=== PATIENT | female | born 1960 | race Caucasian/White ===

== ENCOUNTER 2022-01-24 18:31 | Inpatient (IN) | payer OTHER ==
[~2022-01-24] VITALS: Ht 177.8 cm; Wt 73.3 kg
[2022-01-24 20:00] VITALS: BP 122/73; PULSE 111; TEMP 98.1
[2022-01-24] MEDS ORDERED: RISPERDAL 0.5M0.5 MG PO (20:13)
[2022-01-24] MEDS ORDERED: ONE-A-DAY ESSE1 EACH PO (20:16)
[2022-01-24] MEDS ORDERED: LEXAPRO 10MG10 MG PO (20:16)
[2022-01-24] MEDS ORDERED: FOLIC ACID 11 MG/TA1 PO (20:17)
[2022-01-24] MEDS ORDERED: PROTONIX 40MG T40 MG PO (20:18)
[2022-01-24] MEDS ORDERED: SYNTHROID0.05 MG/TA PO (20:18)
[2022-01-24 22:00] LABS: MEAN CELL VOLUME 91 fl (80.0-100.0); MEAN CORPUSCULAR HGB CONC 32 g/dl (33.0-37.0); MEAN PLATELET VOLUME 10.7 fl (7.4-10.4); PLATELET COUNT 442 K/mm3 (130-400); RED BLOOD COUNT 3.31 M/mm3 (4.10-5.30); REDCELL DISTRIBUTION WIDTH-CV 18.6 % (11.5-14.5)
--- NOTE | 2022-01-24 22:05 | NUR ---
Pt to room at approximately 1940 via EMS stretcher. Pt acclimated to room and policies. Assessment and med rec completed without difficulty. Pt is A&O and pleasant. Ice pack placed on pts L hip. Pt rates pain 8/10 when L hip is moved. PRN pain medication ordered. All other needs met at this time. Call light within reach.
[2022-01-24 22:06] LABS: HEMATOCRIT 30.2 % (37.0-47.0); HEMOGLOBIN 9.5 g/dl (12.5-16.0); INR 1.1 (0.8-3.0); MEAN CORPUSCULAR HEMOGLOBIN 29 pg (27-31); PROTHROMBIN TIME 12.9 SECONDS (9.7-12.8)
[2022-01-24 22:41] LABS: ANISOCYTOSIS 2+; BAND 3 % (0-10); HYPOCHROMIA 2+; LYMPHOCYTE 15 % (20.0-51.0); NEUTROPHILS 70 % (42.0-75.2); PLATELET ESTIMATE NORMAL (NORMAL)
[2022-01-24 22:49] LABS: ALBUMIN 2.1 gm/dL (3.4-4.8); BILIRUBIN,TOTAL 1.1 mg/dL (0.2-1.2); CALCIUM 7.9 mg/dL (8.4-10.2); CREATININE, serum 1.01 mg/dL (0.57-1.11); POTASSIUM 3.6 mmol/L (3.5-4.5); TOTAL PROTEIN 5.9 gm/dL (6.2-8.1)
[2022-01-25] VITALS (12 sets, daily range): BP systolic 98–134; BP diastolic 56–90; PULSE 67–106; TEMP 97.4–98.4
[2022-01-25 00:40] LABS: COLLECTION METHOD CATHETER
[2022-01-25 00:55] LABS: PH 6 (5-8); SQUAMOUS EPITHELIAL None Seen /hpf (0-10); URINE APPEARANCE Turbid (CLEAR/HAZY); URINE BACTERIA Rare /hpf (NONE SEEN); URINE BILIRUBIN Negative (NEGATIVE); URINE BLOOD Negative (NEGATIVE); URINE COLOR Amber (YELLOW); URINE GLUCOSE Negative (NEGATIVE); URINE KETONE Negative (NEGATIVE); URINE LEUKOCYTE ESTERASE 3+ (NEGATIVE); URINE NITRATE Negative (NEGATIVE); URINE PROTEIN(semi-quant) 1+ (NEGATIVE); URINE RBC 20-50 /hpf (0-2); URINE UROBILINOGEN >=4.0 (NEGATIVE)
[2022-01-25 06:29] LABS: BASO # 0.1 K/mm3 (0.0-0.2); BASO % 0.4 % (0.0-2.0); EOS # 0.1 K/mm3 (0.0-0.7); EOS % 0.5 % (0.0-4.0); GRAN # 9.5 K/mm3 (1.4-6.5); GRAN % 73.5 % (42.2-75.2); LYMPH # 1.9 K/mm3 (1.2-3.4); LYMPH % 14.6 % (20.0-51.0); MEAN CELL VOLUME 91 fl (80.0-100.0); MEAN CORPUSCULAR HGB CONC 32 g/dl (33.0-37.0); MEAN PLATELET VOLUME 11.1 fl (7.4-10.4); MONO # 1.4 K/mm3 (0.1-0.6); MONO % 10.4 % (1.7-9.3); PLATELET COUNT 427 K/mm3 (130-400); RED BLOOD COUNT 3.26 M/mm3 (4.10-5.30); REDCELL DISTRIBUTION WIDTH-CV 18.6 % (11.5-14.5)
[2022-01-25 06:31] LABS: HEMATOCRIT 29.7 % (37.0-47.0); HEMOGLOBIN 9.4 g/dl (12.5-16.0); MEAN CORPUSCULAR HEMOGLOBIN 29 pg (27-31)
[2022-01-25 06:38] LABS: CALCIUM 7.9 mg/dL (8.4-10.2); CREATININE, serum 0.73 mg/dL (0.57-1.11); POTASSIUM 3.4 mmol/L (3.5-4.5)
--- NOTE | 2022-01-25 08:22 | NUR ---
Discussed with ALANA Corcoran regarding clearance for surgery. Plan to see pt soon
--- NOTE | 2022-01-25 09:19 | NUR ---
Initial visit; Patient thanked Aerospace Assembler for looking in on her, offering prayer and encouragement and God's blessings. Aerospace Assembler will follow up with lele.
--- NOTE | 2022-01-25 09:53 | NUR ---
Called vascular to see about echo, should be done soon. Plan for surgery this afternoon if cleared
--- NOTE | 2022-01-25 10:06 | NUR ---
Echo being done at this time. Pt did receive some IV morphine earlier, pt reports that her pain is tolerable at this time. Pt is aware of the plan for the day.
--- NOTE | 2022-01-25 10:24 | NUR ---
YASMANY met with the patient to discuss discharge plan. The patient lives alone in [place]. She states that she has family that lives nearby. She reports independence with ADLs before her fall and has a cane and walker available, if needed. The patient's PCP is Dr. Alvina Garcia and she receives her medications from [facility]. The patient does not have a DPOA-HC, but she was interested in obtaining a form. YASMANY provided. The patient states that she is not , does not have any children, and that her parents are . She states that she has one sibling: a brother, Nghia (ph#[phone]). The patient has a hip fracture. SW discussed the possiblity of her needing post-acute rehab upon discharge and the options. The patient's insurance is [employer] Plan. SW informed her of IPR. The patient is interested in IPR and would prefer it. SW consulted IPR Director. Awaiting screen. *Discharge plan: post-acute rehab. Referral out to IPR. They will need insurance auth*
--- NOTE | 2022-01-25 12:10 | NUR ---
Notified cardiology in regards to needing echo read for surgical clearance. Discussed with Dr Kingsley who reported he would do it within the half hour. Pt doing well, pain is managed by iv morphine. Pt does have visitor at bedside. No other needs verbalized, tolerating IV potassium. Call light within reach
--- NOTE | 2022-01-25 12:53 | NUR ---
Echo has been read, notified hospitalist. Pt cleared for surgery, ortho notified
--- NOTE | 2022-01-25 14:43 | NUR ---
Pt off the floor for surgery at this time
--- NOTE | 2022-01-25 18:14 | NUR ---
Pt recently arrived to the floor from [facility]. She is alert and oriented with some pain complaints, 5/10. VSS. Dressing to LLE is CDI. Educated on post op care. Ordered dinner for her as she is tolerating ice chips with no complaints of nausea. Pt is on 2L of O2 per NC.
--- NOTE | 2022-01-25 22:52 | NUR ---
Pt sitting up in bed eating her evening meal during shift exchange, tolerating oral intake well. Assessment and medication pass completed without difficulty. Pt has complaints of L hip pain, PRN pain medication given per EMAR. All other needs met at this time, pt currently sleeping. Call light within reach.
[2022-01-26 03:17] VITALS: BP 103/68; PULSE 73; TEMP 97.9
[2022-01-26 06:43] LABS: HEMATOCRIT 29.7 % (37.0-47.0)
[2022-01-26 07:28] VITALS: BP 115/67; PULSE 72; TEMP 97.5
[2022-01-26 11:18] VITALS: BP 149/84; PULSE 95; TEMP 98.8
--- NOTE | 2022-01-26 13:03 | NUR ---
PT IN RECLINER CHAIR WITH FEET ELEVATED, WAS ASSISTED THERE BY PHYSICAL THERAPY THIS MORNING, HAS FINISHED EATING LUNCH. PT HAS HAD FAMILY VISITING THIS MORNING. DUNCAN SHAW DRAINING DEPENDENTLY. PT STATES THAT PAIN IS NOT BAD UNTIL SHE MOVES THEN BECOMES WORSE WITH MOVEMENT. PT DENIES NEEDS @ THIS TIME. RESPIRATIONS UNLABORED ON ROOM AIR. DRESSING CDI TO LEFT HIP. CALL LIGHT WITHIN REACH.
--- NOTE | 2022-01-26 15:03 | NUR ---
The PA notified YASMANY that the patient's brother requested to speak to SW and stated that he has concerns about the patient's wellbeing. YASMANY contacted the patient's brother, Nghia, to address the above. Nghia states that he is concerned about the patient's overall mental health. He states that the patient does have depression and she has had a decline since September, when their mother . He would just like to know what he can do to help the patient and of any local resources. YASMANY provided support. YASMANY emailed Nghia a list of local mental health resource and clinics. Lu, IPR Director, reports that she has submitted for auth.
[2022-01-26 15:33] VITALS: BP 106/54; PULSE 86; TEMP 97.8
--- NOTE | 2022-01-26 17:14 | NUR ---
PT RESTING IN BED, IVF INFUSING. RESPIRATIONS UNLABORED ON ROOM AIR. SONG CATHETER DRAINING DEPENDENTLY, URINE IS YELLOW ET CLEAR. SONG CATHETER APPEARS TO HAVE BEEN DRAINED THIS AFTERNOON BUT NO OUTPUT HAS BEEN DOCUMENTED, PT STATES THAT SOMEONE DRAINED THE BAG EARLIER BUT IS UNSURE OF WHO. NORCO PO ADMINISTERED FOR PAIN, PT DENIES FURTHER NEEDS. CALL LIGHT WITHIN REACH.
[2022-01-26 20:16] VITALS: BP 101/57; PULSE 84; TEMP 97.9
[2022-01-26 23:32] VITALS: BP 97/58; PULSE 82; TEMP 98.2
--- NOTE | 2022-01-27 00:49 | NUR ---
PATIENT IN BED. ALERT AND ORIENTED. C/O MODERATE PAIN, PRN NORCO GIVEN ALONG WITH SCHEDULED TYLENOL. SONG TO DD WITH WILDER CLEAR URINE OUT. L HIP X3 SITES WITH GAUZE AND TEGADERM ARE CDI.
[2022-01-27 04:08] VITALS: BP 104/54; PULSE 84; TEMP 98.2
[2022-01-27 07:54] VITALS: BP 109/58; PULSE 85; TEMP 97.9
[2022-01-27 08:03] LABS: BASO # 0.1 K/mm3 (0.0-0.2); BASO % 0.6 % (0.0-2.0); EOS # 0.1 K/mm3 (0.0-0.7); EOS % 0.6 % (0.0-4.0); GRAN # 7.7 K/mm3 (1.4-6.5); GRAN % 74.5 % (42.2-75.2); LYMPH # 1.5 K/mm3 (1.2-3.4); LYMPH % 14.5 % (20.0-51.0); MEAN CELL VOLUME 95 fl (80.0-100.0); MEAN CORPUSCULAR HGB CONC 31 g/dl (33.0-37.0); MEAN PLATELET VOLUME 10.8 fl (7.4-10.4); MONO # 0.9 K/mm3 (0.1-0.6); PLATELET COUNT 438 K/mm3 (130-400); RED BLOOD COUNT 2.91 M/mm3 (4.10-5.30); REDCELL DISTRIBUTION WIDTH-CV 19.1 % (11.5-14.5)
[2022-01-27 08:10] LABS: HEMATOCRIT 27.5 % (37.0-47.0); HEMOGLOBIN 8.6 g/dl (12.5-16.0); MEAN CORPUSCULAR HEMOGLOBIN 30 pg (27-31)
[2022-01-27 08:22] LABS: CALCIUM 7.9 mg/dL (8.4-10.2); CREATININE, serum 0.6 mg/dL (0.57-1.11)
--- NOTE | 2022-01-27 09:34 | NUR ---
Pt doing okay this morning. She is slow to waking up. Encouraged her to get some breakfast as therapy would be coming around to work with her. I did order her some at this time. Dressing to left hip is CDI. Explained the plan will be to remove her catheter today. Pt denies any needs, call light within reach
[2022-01-27 11:31] VITALS: BP 104/65; PULSE 97; TEMP 97.9
[2022-01-27 15:37] VITALS: BP 102/60; PULSE 87; TEMP 98.2
--- NOTE | 2022-01-27 15:56 | NUR ---
Lu, IPR Director, reports that insurance is denying IPR and would recommend SNF. YASMANY contacted the patient to update and to discuss the other options. The patient would like to stay around the [facility]. She states that she would be interested in [facility] Sw[facility]. YASMANY attempted to contact Umair at [facility]. SW left her a message, giving her the referral. YASMANY contacted and faxed and emailed a referral to [facility]. Awaiting screens. If able to accept, the above facilities would need to get auth from insurance.
[2022-01-27 20:00] VITALS: BP 121/71; PULSE 89; TEMP 98
--- NOTE | 2022-01-27 21:10 | NUR ---
Pt. sitting up in bed. Pt. is A&OX3, assessment complete. INT to lt. forearm patent. Pt. reports pain to lt. hip at a 5 on pain scale, giving pain meds per orders. Pt. denies further needs, call light within [facility].
[2022-01-28 00:51] VITALS: BP 117/62; PULSE 88; TEMP 98.6
[2022-01-28 04:12] VITALS: BP 118/64; PULSE 84; TEMP 98.6
[2022-01-28 06:18] LABS: BASO # 0.1 K/mm3 (0.0-0.2); BASO % 0.6 % (0.0-2.0); EOS # 0.1 K/mm3 (0.0-0.7); EOS % 0.9 % (0.0-4.0); GRAN % 70.1 % (42.2-75.2); LYMPH # 1.6 K/mm3 (1.2-3.4); LYMPH % 16.2 % (20.0-51.0); MEAN CELL VOLUME 98 fl (80.0-100.0); MEAN CORPUSCULAR HGB CONC 30 g/dl (33.0-37.0); MEAN PLATELET VOLUME 11.3 fl (7.4-10.4); MONO # 1.1 K/mm3 (0.1-0.6); PLATELET COUNT 466 K/mm3 (130-400); RED BLOOD COUNT 2.95 M/mm3 (4.10-5.30); REDCELL DISTRIBUTION WIDTH-CV 19.6 % (11.5-14.5)
[2022-01-28 06:22] LABS: HEMATOCRIT 28.8 % (37.0-47.0); HEMOGLOBIN 8.7 g/dl (12.5-16.0); MEAN CORPUSCULAR HEMOGLOBIN 29 pg (27-31)
[2022-01-28 06:33] LABS: CALCIUM 7.9 mg/dL (8.4-10.2); CREATININE, serum 0.57 mg/dL (0.57-1.11); POTASSIUM 3.6 mmol/L (3.5-4.5)
[2022-01-28 07:42] VITALS: BP 118/73; PULSE 77; TEMP 98.1
[2022-01-28 12:00] VITALS: BP 114/65; PULSE 85; TEMP 98.3
[2022-01-28 15:21] VITALS: BP 126/72; PULSE 79; TEMP 98.1
--- NOTE | 2022-01-28 18:57 | NUR ---
PT HAS DONE WELL THROUGHOUT SHIFT, HAS WORKED WITH PHYSICAL THERAPY ET BEEN UP TO CHAIR, AMBULATED TO BR WITH SBA ET WALKER. PT STATES THAT SHE TOOK A NAP THIS AFTERNOON.
[2022-01-28 19:57] VITALS: BP 96/59; PULSE 93; TEMP 98
--- NOTE | 2022-01-28 20:30 | NUR ---
Pt. sitting up in bed. Pt. is A&OX3, assessment complete. INT to lt. forearm patent. Pt. reports pain at a 4 on pain scale, giving pain meds per orders. Pt. denies further needs, call light within reach.
[2022-01-29 00:39] VITALS: BP 110/61; PULSE 84; TEMP 97.6
[2022-01-29 04:43] VITALS: BP 125/69; PULSE 89; TEMP 98.8
[2022-01-29 07:10] LABS: CALCIUM 8.1 mg/dL (8.4-10.2); CREATININE, serum 0.53 mg/dL (0.57-1.11); POTASSIUM 3.9 mmol/L (3.5-4.5)
[2022-01-29 07:39] VITALS: BP 139/82; PULSE 100; TEMP 98.2
[2022-01-29 07:54] LABS: MEAN CELL VOLUME 95 fl (80.0-100.0); MEAN CORPUSCULAR HGB CONC 31 g/dl (33.0-37.0); MEAN PLATELET VOLUME 11.3 fl (7.4-10.4); PLATELET COUNT 504 K/mm3 (130-400); RED BLOOD COUNT 2.98 M/mm3 (4.10-5.30); REDCELL DISTRIBUTION WIDTH-CV 19.9 % (11.5-14.5)
[2022-01-29 07:55] LABS: HEMATOCRIT 28.3 % (37.0-47.0); HEMOGLOBIN 8.8 g/dl (12.5-16.0); MEAN CORPUSCULAR HEMOGLOBIN 30 pg (27-31)
[2022-01-29 08:49] LABS: LYMPHOCYTE 10 % (20.0-51.0); NEUTROPHILS 77 % (42.0-75.2)
[2022-01-29 08:50] LABS: ANISOCYTOSIS 2+; HYPOCHROMIA 2+; PLATELET ESTIMATE INCREASED (NORMAL)
[2022-01-29 11:29] VITALS: BP 121/70; PULSE 92; TEMP 98.4
[2022-01-29 15:13] VITALS: BP 143/79; PULSE 91; TEMP 98.4
--- NOTE | 2022-01-29 20:00 | NUR ---
Pt. sitting up in bed. Pt. is A&OX3 assessment complete. INT to lt. forearm patent. Pt. reports pain to lt. hip at a 3 on pain scale. Pt. denies further needs, call light within reach.
[2022-01-29 20:23] VITALS: BP 112/64; PULSE 89; TEMP 98.2
[2022-01-30] VITALS (7 sets, daily range): BP systolic 111–143; BP diastolic 62–80; PULSE 78–93; TEMP 98.1–98.6
[2022-01-30 06:28] LABS: MEAN CELL VOLUME 93 fl (80.0-100.0); MEAN CORPUSCULAR HGB CONC 31 g/dl (33.0-37.0); MEAN PLATELET VOLUME 11.1 fl (7.4-10.4); PLATELET COUNT 557 K/mm3 (130-400); RED BLOOD COUNT 3.04 M/mm3 (4.10-5.30); REDCELL DISTRIBUTION WIDTH-CV 19.9 % (11.5-14.5)
[2022-01-30 06:31] LABS: HEMATOCRIT 28.4 % (37.0-47.0); HEMOGLOBIN 8.8 g/dl (12.5-16.0); MEAN CORPUSCULAR HEMOGLOBIN 29 pg (27-31)
[2022-01-30 06:45] LABS: CALCIUM 8.2 mg/dL (8.4-10.2); CREATININE, serum 0.51 mg/dL (0.57-1.11); POTASSIUM 3.9 mmol/L (3.5-4.5)
[2022-01-30 06:59] LABS: BAND 6 % (0-10); LYMPHOCYTE 20 % (20.0-51.0); METAMYELOCYTE 1 % (0-0); NEUTROPHILS 59 % (42.0-75.2); PLATELET ESTIMATE INCREASED (NORMAL)
--- NOTE | 2022-01-30 08:00 | NUR ---
PATIENT IS A&O. VSS. REPORTS SHE HAD PAIN MEDS FROM WASTEWATER DESIGN ENGINEER BEFORE SHIFT CHANGE AND IS COMFORTABLE. LEFT HIP SITES X2 WITH GAUZE & TEGA AND DRESSINGS WERE STARTING TO PEEL, APPLIED NEW GAUZE & TEGA TO LEFT HIP SITES. LEFT LATERAL KNEE SITE CD&I WITH BANDAID. STAND BY ASSIST WITH WALKER. PT/OT CONSULTED. TEDS TO BLE. SCD'S CURRENTLY OFF. NO C/O N/V. BREAKFAST TRAY AT BEDSIDE. AM MEDS GIVEN. LEFT FORARM IV TO INT. HEAD TO TOE ASSESSMENT COMPLETE. DNR STATUS. BLANKET INSPECTOR WORKING ON DISCHARGE PLACEMENT. NO OTHER NEEDS. CALL LIGHT IN REACH.
--- NOTE | 2022-01-30 08:57 | NUR ---
YASMANY left message for Fabi at [facility] to follow up on referral.
--- NOTE | 2022-01-30 10:21 | NUR ---
[facility] is not able to accept this patient. At this time they do not have a female bed open. Other reasons for denial are the patient's insurance and THC use. Fabi with [facility] is awaiting on review from their medical team.
--- NOTE | 2022-01-30 12:56 | NUR ---
Fabi with [facility] states that they are willing to accept this patient as long as the patient's insurance approves. Clinical information faxed to [employer].
--- NOTE | 2022-01-30 15:44 | NUR ---
SW contacted [facility]. Clinical's not received from earlier today. Clinicals faxed again to [phone]. Phone call made and message left for Fabi at [facility].
--- NOTE | 2022-01-30 16:10 | NUR ---
Clinical referral faxed to [facility].
--- NOTE | 2022-01-30 16:48 | NUR ---
PATIENT AMBULATED WITH PT TOLERATED WELL PROVIDED ICE POST AMBULATION TO LEFT HIP FOR PAIN. BED ALARM IN PLACE TO PROMOTE SAFETY HEENA ARREDONDOE TO AARON ENAMORADOTIBettie DRESSING INTACT WILL CONTINUE TO MONITOR FOR ANY CHAGNES.
--- NOTE | 2022-01-30 21:37 | NUR ---
PT IN BED. IS ALERT AND ORIENTED X4. HAS DRSGS X2 TO LEFT HIP, GAUZE D/I. HAS BANDAID TO LEFT LATERAL LEG D/I. PT WEARING HER OWN CLOTHES. HAS HEENA HOSE ON. TAKES HS MED INCLUDING NORCO 7.5MG 1 PO FOR LEFT HIP PAIN. HAS LFA INT.
[2022-01-31 03:33] VITALS: BP 128/77; PULSE 89; TEMP 98.3
--- NOTE | 2022-01-31 03:46 | NUR ---
PT ASSISTED TO BATHROOM WITH WALKER AND ONE ASSIST. HAS BM. BACK TO BED. MEDICATED WITH NORCO 7.5MG 1 TAB PO FOR LEFT HIP PAIN.
[2022-01-31 07:50] VITALS: BP 162/87; PULSE 94; TEMP 98.7
--- NOTE | 2022-01-31 09:24 | NUR ---
PT RESTING IN BED AFTER EATING BREAKFAST AND COMPLETING AM THERAPY. PT REQUESTING PO PAIN NEDS AFTER THERAPY. SEE MAR. PT TRYING FOR PLACEMENT PRIOR TO RETURNING HOME.
--- NOTE | 2022-01-31 10:07 | NUR ---
Fabi with [facility] accepts patient and would like the patient at their facility by 1400. Patient notified and is agreeable with this plan. She is going to check with her brother and her boyfriend to arrange transportation. Hospitalist and patient's RN notified. Discharge plan: [facility]
[2022-01-31] MEDS ORDERED: ASPIRIN 32325 MG/TAB PO (11:07)
[2022-01-31] MEDS ORDERED: COLACE 100100 MG/CAP PO (11:08)
[2022-01-31] MEDS ORDERED: DULCOLAX S10 MG/SUPP RC (11:08)
[2022-01-31] MEDS ORDERED: NORCO 325 MG-51 TAB PO (11:09)
[2022-01-31] MEDS ORDERED: FERRO-TIME325 MG PO (11:09)
[2022-01-31 11:43] VITALS: BP 127/72; PULSE 84; TEMP 98.4
--- NOTE | 2022-01-31 13:25 | NUR ---
SW received phone message from [facility] that they did not get the clinical updates that were faxed yesterday/ YASMANY refaxed updates along withupdates from today to:f#[phone] & [phone].
--- NOTE | 2022-01-31 13:25 | NUR ---
REPORT CALLED TO [facility]. PT LEAVING POV TO [facility].
--- NOTE | 2022-01-31 13:50 | NUR ---
PT LEFT UNIT PER WHEEL CHAIR WITH STAFF.
== END 2022-01-31 14:19 | disposition swing bed (61) | DRG 481 ==
LOC: MEDICAL 18:31 → SURG 20:30
PROVIDERS: Family Medicine; Orthopaedic Surgery; Physician Assistant; Student in an Organized Health Care Education/Training Program; ADMIT Internal Medicine
PROC: 0QS706Z Reposition Left Upper Femur with Intramedullary Internal Fixation Device, Open Approach (ICD-10-PCS; principal; 2022-01-24)
DX: S72.142A Displaced intertrochanteric fracture of left femur, initial encounter for closed fracture (principal); N39.0 Urinary tract infection, site not specified; F10.10 Alcohol abuse, uncomplicated; F32.A Depression, unspecified; D64.9 Anemia, unspecified; Z66 Do not resuscitate; K21.9 Gastro-esophageal reflux disease without esophagitis; F41.9 Anxiety disorder, unspecified; E87.6 Hypokalemia; D72.829 Elevated white blood cell count, unspecified; D75.839 Thrombocytosis, unspecified; E86.0 Dehydration; F12.90 Cannabis use, unspecified, uncomplicated; W01.0XXA Fall on same level from slipping, tripping and stumbling without subsequent striking against object, initial encounter; Y92.89 Other specified places as the place of occurrence of the external cause; Y93.89 Activity, other specified; Z86.711 Personal history of pulmonary embolism; Z79.01 Long term (current) use of anticoagulants; Z87.19 Personal history of other diseases of the digestive system; Z79.890 Hormone replacement therapy; Z87.891 Personal history of nicotine dependence
CPT/HCPCS: 99223-AI; 99232-AI; 99233-AI; 99239; A9284; C1713; C1769; J0690; J0696; J1100; J1885; J2250; J2270; J2405; J2704; J2795; J3010; J3480

== ENCOUNTER 2022-09-16 20:00 | Inpatient (IN) | payer BC ==
[~2022-09-16] VITALS: Ht 177.8 cm; Wt 55.1 kg
[~2022-09-16 20:00] MED LIST: ASPIRIN 32325 MG/TAB PO; ASPIRIN E.C. 8181 MG PO; CALTRATE-600 W600 MG PO; COLACE 100100 MG/CAP PO; DULCOLAX S10 MG/SUPP RC; FERRO-TIME325 MG PO; FOLIC ACID 11 MG/TA1 PO; LEXAPRO 10MG10 MG PO; NORCO 325 MG-51 TAB PO; NORCO 325 MG-7.1 TAB PO; ONE-A-DAY ESSE1 EACH PO; PROTONIX 40MG T40 MG PO; RISPERDAL 0.5M0.5 MG PO; SYNTHROID0.05 MG/TA PO; VITAMIN B1 50 MG PO
--- NOTE | 2022-09-16 21:35 | NUR ---
THE PATIENT ARRIVED VIA EMS. THE PATIENT WAS ALERT AND ORIENTED AND APPROPRIATE. A BANANA BAG WAS INFUSING UPON ARRIVAL. THE PATIENT ASKED FOR ANXIETY MEDICATION UPON ARRIVAL. THE PATIENT WAS ORIENTED TO ROOM AND BED CONTROLS. THE BED ALARM WAS PLACED IN THE ON POSITION. BED IN LOW POSITION. CALL LIGHT WITHIN REACH.
[2022-09-16 21:36] VITALS: BP 116/66; PULSE 101; TEMP 98.8
[2022-09-16 22:28] LABS: CALCIUM 8.7 mg/dL (8.4-10.2); CREATININE, serum 0.59 mg/dL (0.57-1.11); MAGNESIUM 1.7 mg/dL (1.6-2.6)
[2022-09-16 23:14] VITALS: BP 109/60; PULSE 99; TEMP 98.1
[2022-09-16] MEDS ORDERED: ASPIRIN 81M81 MG/TA2 PO (23:24)
[2022-09-17 03:49] VITALS: BP 127/63; PULSE 101; TEMP 98.3
[2022-09-17 06:34] LABS: BASO # 0.1 K/mm3 (0.0-0.2); BASO % 0.8 % (0.0-2.0); EOS # 0.2 K/mm3 (0.0-0.7); EOS % 1.8 % (0.0-4.0); GRAN # 5.7 K/mm3 (1.4-6.5); GRAN % 65.6 % (42.2-75.2); LYMPH # 1.7 K/mm3 (1.2-3.4); LYMPH % 19.8 % (20.0-51.0); MEAN CELL VOLUME 100 fl (80.0-100.0); MEAN CORPUSCULAR HGB CONC 31 g/dl (33.0-37.0); MEAN PLATELET VOLUME 11.6 fl (7.4-10.4); MONO % 11.7 % (1.7-9.3); PLATELET COUNT 282 K/mm3 (130-400); RED BLOOD COUNT 3.07 M/mm3 (4.10-5.30)
[2022-09-17 06:37] LABS: HEMATOCRIT 30.7 % (37.0-47.0); HEMOGLOBIN 9.6 g/dl (12.5-16.0); MEAN CORPUSCULAR HEMOGLOBIN 31 pg (27-31)
[2022-09-17 06:55] LABS: CALCIUM 8.3 mg/dL (8.4-10.2); CREATININE, serum 0.62 mg/dL (0.57-1.11); MAGNESIUM 2.4 mg/dL (1.6-2.6); POTASSIUM 3.2 mmol/L (3.5-4.5)
[2022-09-17 07:36] VITALS: BP 103/58; PULSE 98; TEMP 99.6
[2022-09-17 12:17] VITALS: BP 99/54; PULSE 101; TEMP 98.4
--- NOTE | 2022-09-17 13:25 | NUR ---
SW met with patient to complete intake. Patient states that she lives in [place] alone. Point of contact her brother Nghia Hawkins [phone] whom she appointed as DPOA during intake. Original document placed in chart and copies made for patient records. Patient states that she utilizes a walker, is independent with ADL's, and does not utilize HH services at this time. PCP is Dr. Garcia and pharmacy is [facility]. Patient plans to return to her home upon DC. YASMANY will continue to follow. DC plan: home with HH vs skilled
[2022-09-17 16:55] VITALS: BP 109/66; PULSE 97; TEMP 98.9
[2022-09-17 19:16] VITALS: BP 116/68; PULSE 101; TEMP 98.6
[2022-09-17 23:15] VITALS: BP 119/60; PULSE 106; TEMP 98.9
[2022-09-18] VITALS (8 sets, daily range): BP systolic 98–141; BP diastolic 56–79; PULSE 93–109; TEMP 97.5–98.9
--- NOTE | 2022-09-18 03:31 | NUR ---
SHIFT NURSING ASSESSMENT COMPLETED. THE PATIENT DENIED NEEDS AT THIS TIME. NO S/S OF DISTRESS NOTED. THE PLAN OF CARE AND EVENING MEDICATIONS DISCUSSED. WILL MONITOR.
[2022-09-18 08:20] LABS: CALCIUM 7.9 mg/dL (8.4-10.2); CREATININE, serum 0.51 mg/dL (0.57-1.11); POTASSIUM 3.4 mmol/L (3.5-4.5)
--- NOTE | 2022-09-18 10:31 | NUR ---
SHIFT ASSESSMENT COMPLETED AND MORNING MEDICATIONS ADMINISTERED PER ORDER. PATIENT IS ALERT AND ORIENTED. LUNGS DIMINISHED. INCONTINENT. AWAITING TRANSFER TO SKILLED. DENIES NEEDS AT THIS TIME. WILL TRIAL PUREWIC PATIENT IS INCONTINENT. CALL LIGHT WITHIN REACH.
--- NOTE | 2022-09-18 10:40 | NUR ---
IPR was consulted. Lu, with IPR, reports that they are asking for a neuro consult and they would like to see neurology's recs first and would then need to submit for auth. Umair, at [facility], reports that they are full at this time. The patient has [facility] for health insurance and will likely not have SNF benefits.
--- NOTE | 2022-09-18 14:38 | NUR ---
ORTHOS COMPLETED PER DR. FERRELL'S REQUEST. LP AND MRI WILL BE SCHEDULED FOR TOMORROW D/T MRI NOT BEING ABLE TO SEE PATIENT UNTIL TOMORROW.
--- NOTE | 2022-09-19 00:22 | NUR ---
PATIENT IS AOX4 AND PLEASANT TO SPEAK WITH. COMPLAINS OF 5/10 BLE PAIN, GIVEN TYLENOL 1X. SINUS RHYTHM ON THE MONITORS. SHE STATES SHE IS NOT ABLE TO AMBULATE BUT DID SO WITH THERAPY TODAY. LP AND MRI PLANNED FOR 09/19 WELL A GLUCOSE TOLERANCE TEST. THE PLAN RIGHT NOW IS FOR HER TO GO TO A SNF AT DISCHARGE.
[2022-09-19 03:47] VITALS: BP 130/75; PULSE 92; TEMP 97.8
[2022-09-19 06:46] LABS: BASO # 0.1 K/mm3 (0.0-0.2); BASO % 0.9 % (0.0-2.0); EOS # 0.2 K/mm3 (0.0-0.7); EOS % 2.2 % (0.0-4.0); GRAN % 63.6 % (42.2-75.2); HEMATOCRIT 29.9 % (37.0-47.0); HEMOGLOBIN 9.3 g/dl (12.5-16.0); LYMPH # 1.7 K/mm3 (1.2-3.4); LYMPH % 21.7 % (20.0-51.0); MEAN CELL VOLUME 100 fl (80.0-100.0); MEAN CORPUSCULAR HEMOGLOBIN 31 pg (27-31); MEAN CORPUSCULAR HGB CONC 31 g/dl (33.0-37.0); MONO # 0.9 K/mm3 (0.1-0.6); MONO % 11.2 % (1.7-9.3); PLATELET COUNT 256 K/mm3 (130-400); REDCELL DISTRIBUTION WIDTH-CV 15.2 % (11.5-14.5)
[2022-09-19 07:11] LABS: CALCIUM 8.5 mg/dL (8.4-10.2); CREATININE, serum 0.48 mg/dL (0.57-1.11); POTASSIUM 4.1 mmol/L (3.5-4.5)
[2022-09-19 08:07] LABS: FASTING GLUCOSE 92 mg/dL (70-110)
[2022-09-19 08:16] VITALS: BP 127/78; PULSE 99; TEMP 98.2
[2022-09-19 10:06] LABS: 1/2 HR GLUCOSE 160 mg/dL (100-170)
[2022-09-19 10:25] LABS: 1 HR GLUCOSE 202 mg/dL (90-160)
--- NOTE | 2022-09-19 10:56 | NUR ---
YASMANY staffed with FELY Leigh Director. Neurology is recommending a lumbar puncture and MRI. IPR would like to see how the patient does after having these done.
[2022-09-19 12:07] VITALS: BP 102/55; PULSE 109; TEMP 98.8
--- NOTE | 2022-09-19 12:46 | NUR ---
PATIENT WAS UNABLE TO COMPLETE THE URINE GLUCOSE TESTING. PATIENT ONLY GOT OUT A FASTING URINE, BUT HAS NOT BEEN ABLE TO PEE SINCE. LAB DEPARTMENT NOTIFIED.
[2022-09-19 16:00] VITALS: BP 119/70; PULSE 99; TEMP 98.3
[2022-09-19 16:25] LABS: GLUCOSE,CSF 54 mg/dL (40-70); TOTAL PROTEIN,CSF 36 mg/dL (15-45)
[2022-09-19 16:41] LABS: CSF APPEARANCE CLEAR; CSF COLOR COLORLESS; CSF RBC 3 /mm3 (0-0)
--- NOTE | 2022-09-19 16:45 | NUR ---
PATIENT IS AXOX4. WAS PUT NPO AT MIDNIGHT 2/6 FOR GLUCOSE TESTING TODAY. COMPLETED, BUT WAS UNABLE TO URINATE EVERY 30 MINUTES. LUMBAR PUNCTURE ALSO COMPLETED ALONG WITH MRI. CSF SPECIMEN OBTAINED, AND RESULTS ARE PENDING. PATIENT IS PLEASANT. VSS. X1 ASSIST TO THE RESTROOM. WILL CONTINUE TO MONITOR.
[2022-09-19 17:13] LABS: CSF MONONUCLEAR 100 % (70-100); CSF POLYMORPHONUCLEAR 0 % (0-6)
[2022-09-19 20:01] VITALS: BP 102/58; PULSE 98; TEMP 97.9
[2022-09-19 21:09] LABS: LYME DISEASE ANTIBODIES Negative (Negative)
--- NOTE | 2022-09-19 22:37 | NUR ---
PATIENT IS AOX4 AND PLEASANT TO SPEAK WITH. CONTINUES TO HAVE BLE PAIN, WORKING WITH PT/OT. LUMBAR PUNCTURE IS NEGATIVE. PUREWICK IN PLACE. THE PLAN IS STILL FOR HER TO GO TO A SNF. BED IN LOWEST POSITION. CALL LIGHT IN REACH.
[2022-09-20] VITALS (7 sets, daily range): BP systolic 108–135; BP diastolic 45–74; PULSE 63–104; TEMP 97.9–99.2
[2022-09-20 06:49] LABS: BASO # 0.1 K/mm3 (0.0-0.2); BASO % 0.8 % (0.0-2.0); EOS # 0.2 K/mm3 (0.0-0.7); EOS % 2.1 % (0.0-4.0); GRAN # 5.9 K/mm3 (1.4-6.5); GRAN % 65.1 % (42.2-75.2); LYMPH # 1.8 K/mm3 (1.2-3.4); LYMPH % 20.3 % (20.0-51.0); MEAN CELL VOLUME 99 fl (80.0-100.0); MEAN CORPUSCULAR HGB CONC 32 g/dl (33.0-37.0); MEAN PLATELET VOLUME 11.9 fl (7.4-10.4); MONO % 11.5 % (1.7-9.3); PLATELET COUNT 306 K/mm3 (130-400); REDCELL DISTRIBUTION WIDTH-CV 15.5 % (11.5-14.5)
[2022-09-20 07:02] LABS: HEMATOCRIT 29.8 % (37.0-47.0); HEMOGLOBIN 9.4 g/dl (12.5-16.0); MEAN CORPUSCULAR HEMOGLOBIN 31 pg (27-31)
[2022-09-20 07:08] LABS: CALCIUM 8.8 mg/dL (8.4-10.2); CREATININE, serum 0.49 mg/dL (0.57-1.11); POTASSIUM 3.6 mmol/L (3.5-4.5)
--- NOTE | 2022-09-20 11:07 | NUR ---
The PA notified SW that the clinical team is ready to discharge the patient. SW notified IPR. Lyubov, with IPR, reports that they are submitting for auth to the patient's insurance. Awaiting insurance approval.
[2022-09-20 11:14] LABS: HSV 2 DNA PCR QUAL Not Detected (())
--- NOTE | 2022-09-20 11:51 | NUR ---
DISCHARGE INSTRUCTIONS REVIEWED WITH PATIENT AND HIS SPOUSE. IV REMOVED REMOVED EARLIER NO BLEEDING NOTED AT THIS TIME.
--- NOTE | 2022-09-20 15:22 | NUR ---
Lu, with IPR, reports that they received auth from the patient's insurance and can take the patient tomorrow morning.
--- NOTE | 2022-09-20 15:37 | NUR ---
PT SPOKE WITH REHAB PHYSICIAN ABOUT GOING TO REHAB, PATIENT DID NOT HAVE ANY QUESTIONS AT THIS TIME.
[2022-09-20] MEDS ORDERED: NEURONTIN100 MG/CAP PO (16:54)
--- NOTE | 2022-09-20 21:00 | NUR ---
PT VERY SLEEPY. WAKES TO TAKE HS MEDICATIONS W/O DIFFICULTY. PUREWICK IN USE WITH WILDER CLEAR URINE. DENIES PAIN. CALL LIGHT IN REACH. BED ALARM SET.
[2022-09-21 04:00] VITALS: BP 134/67; PULSE 96; TEMP 99
[2022-09-21 07:24] VITALS: BP 120/61; PULSE 97; TEMP 98.9
--- NOTE | 2022-09-21 08:00 | NUR ---
Patient is reting in bed, alert and oriented, having breakfast. Denies any pain at this time. Assessment completed, no other needs at this time. Call light within reach.
--- NOTE | 2022-09-21 09:02 | NUR ---
The patient is to discharge today, 09/21, to [facility]. No additional needs at this time.
--- NOTE | 2022-09-21 09:54 | NUR ---
Rerport and ppw given to RN in IPR. Pt to be trnasfered by bed to room 334
[2022-09-21 13:50] LABS: ALBUMIN CSF 18.5 mg/dL (<=27.0)
[2022-09-21 14:16] LABS: CSF IGG/ALBUMIN 0.22 (<=0.21); CSF,IGG 4.1 mg/dL (<=8.1)
[2022-09-21 19:50] LABS: CADMIUM BLOOD 0.8 ng/mL (<5.0); MERCURY,SERUM <1 ng/mL (<10)
[2022-09-21 21:32] LABS: ALBUMUN SERUM 2700 mg/dL (()); CSF SYNTHESIS RATE 3.93 mg/24 h (<=12); CSF-IGG INDEX 0.59 (<=0.85); IGG,SERUM 994 mg/dL (()); IGG/ALBUMIN SERUM 0.37 (<=0.40)
[2022-09-22 11:20] LABS: A/G RATIO (PEP) 0.73 (()); BETA GLOBULINS (PEP) 0.9 g/dL (0.7-1.2)
== END 2022-09-21 09:55 | DRG 92 ==
LOC: MEDICAL 20:00
PROVIDERS: Internal Medicine; Physician Assistant; Psychiatry & Neurology Neurology; Student in an Organized Health Care Education/Training Program; ADMIT Internal Medicine
PROC: 009U3ZX Drainage of Spinal Canal, Percutaneous Approach, Diagnostic (ICD-10-PCS; principal; 2022-09-19)
DX: G72.1 Alcoholic myopathy (principal); N39.0 Urinary tract infection, site not specified; F32.A Depression, unspecified; D64.9 Anemia, unspecified; E03.9 Hypothyroidism, unspecified; E87.6 Hypokalemia; G62.1 Alcoholic polyneuropathy; R31.9 Hematuria, unspecified; Z66 Do not resuscitate; F41.9 Anxiety disorder, unspecified; F10.10 Alcohol abuse, uncomplicated; Z79.82 Long term (current) use of aspirin; Z79.891 Long term (current) use of opiate analgesic; Z91.81 History of falling; Z86.711 Personal history of pulmonary embolism
CPT/HCPCS: A9575; G0378; J0696; J1650; J3475; J7030